=== PATIENT | male | born 1950 | race Two or more races ===

== ENCOUNTER 2019-04-09 09:34 | Emergency (ER) | payer OTHER ==
[~2019-04-09] VITALS: Ht 177.8 cm; Wt 129.3 kg
[2019-04-09] MEDS ORDERED: ELIQUIS5 MG (09:42)
[2019-04-09] MEDS ORDERED: FORTAMET500 MG (09:42)
== END 2019-04-09 14:00 | disposition home or self-care (01) ==
LOC: ER 09:34
DX: K29.60 Other gastritis without bleeding (principal)